=== PATIENT | male | born 1940 | race Caucasian/White ===

== ENCOUNTER → 2023-01-05 12:13 | Outpatient (CLI) | payer MEDICARE, SELFPAY ==
--- NOTE | 2023-01-05 12:29 | XR_ITS ---
FINAL REPORT CLINICAL HISTORY: TRAUMA LEFT HIP FINDINGS: An AP pelvis and lateral left hip were obtained. There is no acute fracture or dislocation. 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 There are mild degenerative changes of the right hip and lower lumbar spine. IMPRESSION: No acute process. Reviewed, Interpreted and Dictated by Karl Amador III, MD Transcribed by Tod Monet Authenticated and [facility]
== END ==
PROVIDERS: PCP Emergency Medicine; Visit Provider Emergency Medicine
DX: M25.552 Pain in left hip (principal)
CPT/HCPCS: 73502